=== PATIENT | male | born 1975 | race American Indian/Alaskan Native ===

== ENCOUNTER 2020-05-01 09:57 | Emergency (ER) | payer SELFPAY ==
[2020-05-01] MEDS: KETOROLAC 30 MG/1 ML INJ IV ONE ×2 (12:31→12:39)
--- NOTE | 2020-05-01 12:51 | Emergency Department Report ---
ED General Adult HPI - General Chief complaint: Dental/Oral Stated complaint: TOOTHACHE Time Seen by Provider: 05/01/20 11:16 Source: patient Mode of arrival: Ambulatory Limitations: No Limitations - History of Present Illness Initial comments: 44-year-old -Polish male patient presents with complaints of left upper and lower dental pain x3 days. He also reports facial swelling and difficulty opening his jaw. He denies any drooling, fever/chills/sweats, or difficulty swallowing. He reports that he has a fractured tooth for many years in the right upper tooth and was unable to get his tooth pulled many months ago due to loss of dental insurance. He rates his pain as a 8/10 in severity and describes it as throbbing. He denies any other past medical history Severity scale (0 -10): 8 - Related Data Previous Rx's Medication Instructions Recorded Last Taken Type Acetaminophen/Codeine [Tylenol 1 tab PO Q6H PRN #10 tab 05/01/20 Unknown Rx /Codeine # 3 tab] Clindamycin [Clindamycin CAP] 300 mg PO Q6H 10 Days #10 capsule 05/01/20 Unknown Rx Ibuprofen [Motrin 800 MG tab] 800 mg PO Q8HR PRN #21 tablet 05/01/20 Unknown Rx Allergies Allergy/AdvReac Type Severity Reaction Status Date / Time No Known Allergies Allergy Unverified 05/01/20 12:34 ED Review of Systems ROS: Stated complaint: TOOTHACHE Other details as noted in HPI Constitutional: denies: chills, diaphoresis, fever, malaise, weakness ENT: dental pain. denies: throat pain Respiratory: denies: cough, shortness of breath Cardiovascular: denies: chest pain Gastrointestinal: denies: nausea, vomiting Skin: denies: rash, lesions Neurological: denies: headache, numbness, paresthesias ED Past Medical Hx - Past Medical History Previous Medical History?: Yes - Surgical History Past Surgical History?: No - Medications Home Medications: Home Medications Medication Instructions Recorded Confirmed Last Taken Type Acetaminophen/Codeine [Tylenol 1 tab PO Q6H PRN #10 tab 05/01/20 Unknown Rx /Codeine # 3 tab] Clindamycin [Clindamycin CAP] 300 mg PO Q6H 10 Days #10 capsule 05/01/20 Unknown Rx Ibuprofen [Motrin 800 MG tab] 800 mg PO Q8HR PRN #21 tablet 05/01/20 Unknown Rx ED Physical Exam - General Limitations: No Limitations General appearance: alert, in no apparent distress, obese - Head Head exam: Present: atraumatic, normocephalic - Eye Eye exam: Present: normal appearance. Absent: scleral icterus - Expanded ENT Exam Expanded Mouth exam: Present: trismus, tongue normal. Absent: drooling, muffled voice Teeth exam: Present: dental caries, fractured tooth # (18), dental tenderness # (18), other (Mild swelling noted to the left cheek area overlying the upper molars without erythema; there is tenderness to palpation) Throat exam: Negative: tonsillar erythema, tonsillomegaly - Neck Neck exam: Present: full ROM, lymphadenopathy (Left anterior). Absent: tenderness - Respiratory Respiratory exam: Present: normal lung sounds bilaterally. Absent: respiratory distress - Cardiovascular Cardiovascular Exam: Present: regular rate, normal rhythm, normal heart sounds - Neurological Exam Neurological exam: Present: alert, oriented X3, normal gait - Psychiatric Psychiatric exam: Present: normal affect, normal mood - Skin Skin exam: Present: warm, dry, intact, normal color. Absent: rash ED Course Vital Signs 05/01/20 10:05 Temperature 98.8 F Pulse Rate 78 Respiratory 18 Rate Blood Pressure 136/86 [Right] O2 Sat by Pulse 100 Oximetry ED Medical Decision Making - Lab Data Result diagrams: 05/01/20 12:44 05/01/20 12:44 Lab Results 05/01/20 05/01/20 Range/Units 12:44 12:44 WBC 5.7 (4.5-11.0) K/mm3 RBC 4.87 (3.65-5.03) M/mm3 Hgb 14.6 (11.8-15.2) gm/dl Hct 42.7 (35.5-45.6) % MCV 88 (84-94) fl MCH 30 (28-32) pg MCHC 34 (32-34) % RDW 15.0 (13.2-15.2) % Plt Count 273 (140-440) K/mm3 Lymph % (Auto) 41.0 H (13.4-35.0) % [place] % (Auto) 8.7 H (0.0-7.3) % Eos % (Auto) 1.1 (0.0-4.3) % Baso % (Auto) 0.4 (0.0-1.8) % Lymph # (Auto) 2.3 (1.2-5.4) K/mm3 [place] # (Auto) 0.5 (0.0-0.8) K/mm3 Eos # (Auto) 0.1 (0.0-0.4) K/mm3 Baso # (Auto) 0.0 (0.0-0.1) K/mm3 Seg Neutrophils % 48.8 (40.0-70.0) % Seg Neutrophils # 2.8 (1.8-7.7) K/mm3 Sodium 137 (137-145) mmol/L Potassium 4.2 (3.6-5.0) mmol/L Chloride 99.6 (98-107) mmol/L Carbon Dioxide 22 (22-30) mmol/L Anion Gap 20 mmol/L BUN 10 (9-20) mg/dL Creatinine 0.9 (0.8-1.3) mg/dL Estimated GFR > 60 ml/min BUN/Creatinine Ratio 11 % Glucose 123 H (75-100) mg/dL Calcium 9.2 (8.4-10.2) mg/dL - Radiology Data Radiology results: report reviewed CT NECK WITH INTRAVENOUS CONTRAST AND MULTIPLANAR RECONSTRUCTION CLINICAL HISTORY: left tooth pain with trismus TECHNIQUE: 3.75 mm thick contiguous axial scans were obtained from the skull base down to the aortic arch during intravenous contrast administration. In addition to evaluation of axial source images sagittal and coronal multiplanar reconstructions were produced and reviewed for this report. All CT imaging studies performed at this facility utilize dose modulation, iterative reconstruction or weight based dosing, if appropriate, to obtain the lowest achievable radiation dose. FINDINGS: A large dental gael is seen with destruction of the crown of tooth #16 (upper left third molar). In addition there is periapical lucency which could represent a periodontal abscess. There is discontinuity of cortex of the lateral wall of the maxilla adjacent to tooth #16. There is increased soft tissue fullness in the adjacent soft tissues. No definite evidence of abscess is observed. Periapical lucency is observed at the root of tooth #7. This could represent a small periapical abscess or a radicular cyst. The teeth of the inferior alveolar ridge have an unremarkable appearance. No abnormalities are seen along the course of the airway. Nasopharynx, oropharynx, hypopharynx, larynx and visualized portions of the subglottic airway all have an unremarkable appearance. There is no indication of cervical lymphadenopathy. Several normal-sized lymph nodes are identified in level 1B and level 2 bilaterally. No abnormalities are seen in evaluation of the oral cavity and tongue. The floor the mouth has a normal appearance. The parotid and submandibular salivary glands have a normal appearance. Evaluation of the nasal cavity reveals no abnormality. Paranasal sinuses are remarkable for what appears to be a retention cyst or polyp filling most of the left maxillary sinus. Given the disease in the adjacent third molar the disease in the left maxillary sinus could also be odontogenic in origin. Paranasal sinuses are otherwise free from inflammatory mucosal disease. The orbits have an unremarkable appearance. The thyroid gland is normal in size and homogeneous in attenuation. No focal thyroid lesions are identified. Evaluation of the cervical spine reveals no significant abnormality. Normal alignment is maintained. No significant degenerative changes are identified. Evaluation of the lung apices reveals no abnormality. There is no indication of lung nodule or infiltrate. The visualized portions of the superior mediastinum have an unremarkable appearance. Enhancement of normal vascular structures is demonstrated. No areas of abnormal contrast enhancement are identified. IMPRESSION: 1. A prominent dental gael is present at the crown of tooth #16. In addition there is disruption of the lateral cortex of the adjacent maxilla. 2. Increased soft tissue fullness adjacent to the posterior left maxilla may represent an odontogenic phlegmon. I do not identify a definite abscess at this time. - Medical Decision Making 44-year-old -[place] male patient presents with complaints of left upper and lower dental pain x3 days. He also reports facial swelling and difficulty opening his jaw. He denies any drooling, fever/chills/sweats, or difficulty swallowing. He reports that he has a fractured tooth for many years in the right upper tooth and was unable to get his tooth pulled many months ago due to loss of dental insurance. He rates his pain as a 8/10 in severity and describes it as throbbing. On exam patient has mild trismus and tenderness to palpation of the 18th tooth along with mild swelling of the face. White count is normal on CBC. CT of the neck shows phlegmon and possible small periapical abscess without deep space in fection or impingement on the airway. Patient given IV Clinda. Prescription for clindamycin given for home. His vitals are normal, he is well-appearing, he is stable for discharge home. Patient provided with dental clinic list and informed to follow-up within 24 hours for further evaluation and treatment. Strict return precautions were discussed in detail with patient who verbalizes understanding Critical care attestation.: If time is entered above; I have spent that time in minutes in the direct care of this critically ill patient, excluding procedure time. ED Disposition Clinical Impression: Dental abscess, Dental infection Disposition: TO HOME OR SELFCARE Is pt being admited?: No Condition: Stable Instructions: Dental Abscess (ED) Additional Instructions: Please follow-up with 1 of the dental specialist from the list provided within 24 hours. Prescriptions: Clindamycin [Clindamycin CAP] 300 mg PO Q6H 10 Days #10 capsule Ibuprofen [Motrin 800 MG tab] 800 mg PO Q8HR PRN #21 tablet PRN Reason: Pain, Moderate (4-6) Acetaminophen/Codeine [Tylenol /Codeine # 3 tab] 1 tab PO Q6H PRN #10 tab PRN Reason: Pain , Severe (7-10) Referrals: PRIMARY CARE,MD [Primary Care Provider] - 3-5 Days Forms: Work/School Release Form(ED)
[2020-05-01 13:36] LABS: Basophils % (Auto) 0.4 % (0.0-1.8); Eosinophils # (Auto) 0.1 K/mm3 (0.0-0.4); Eosinophils % (Auto) 1.1 % (0.0-4.3); Hematocrit 42.7 % (35.5-45.6); Hemoglobin 14.6 gm/dl (11.8-15.2); Lymphocytes # (Auto) 2.3 K/mm3 (1.2-5.4); Mean Corpuscular HGB Conc 34 % (32-34); Mean Corpuscular Volume 88 fl (84-94); Monocytes # (Auto) 0.5 K/mm3 (0.0-0.8); Monocytes % (Auto) 8.7 % (0.0-7.3); Platelet Count 273 K/mm3 (140-440); Red Blood Count 4.87 M/mm3 (3.65-5.03)
[2020-05-01 14:10] LABS: BUN/Creatinine Ratio 11; Blood Urea Nitrogen 10 mg/dL (9-20); Calcium 9.2 mg/dL (8.4-10.2); Hemolysis Index 39
--- NOTE | 2020-05-01 16:14 | Cat Scan Report ---
CT NECK WITH INTRAVENOUS CONTRAST AND MULTIPLANAR RECONSTRUCTION CLINICAL HISTORY: left tooth pain with trismus TECHNIQUE: 3.75 mm thick contiguous axial scans were obtained from the skull base down to the aortic arch during intravenous contrast administration. In addition to evaluation of axial source images sagittal and c oronal multiplanar reconstructions were produced and reviewed for this report. All CT imaging studies performed at this facility utilize dose modulation, iterative reconstruction o r weight based dosing, if appropriate, to obtain the lowest achievable radiation dose. FINDINGS: A large dental gael is seen with destruction of the crown of tooth #16 (upper left third molar). In addition there is periapical lucency which could represent a periodontal abscess. There is discontinu ity of cortex of the lateral wall of the maxilla adjacent to tooth #16. There is increased soft tissu e fullness in the adjacent soft tissues. No definite evidence of abscess is observed. Periapical luce ncy is observed at the root of tooth #7. This could represent a small periapical abscess or a radicul ar cyst. The teeth of the inferior alveolar ridge have an unremarkable appearance. No abnormalities are seen along the course of the airway. Nasopharynx, oropharynx, hypopharynx, laryn x and visualized portions of the subglottic airway all have an unremarkable appearance. There is no indication of cervical lymphadenopathy. Several normal-sized lymph nodes are identified i n level 1B and level 2 bilaterally. No abnormalities are seen in evaluation of the oral cavity and tongue. The floor the mouth has a norm al appearance. The parotid and submandibular salivary glands have a normal appearance. Evaluation of the nasal cavity reveals no abnormality. Paranasal sinuses are remarkable for what appe ars to be a retention cyst or polyp filling most of the left maxillary sinus. Given the disease in th e adjacent third molar the disease in the left maxillary sinus could also be odontogenic in origin. P aranasal sinuses are otherwise free from inflammatory mucosal disease. The orbits have an unremarkable appearance. The thyroid gland is normal in size and homogeneous in attenuation. No focal thyroid lesions are iden tified. Evaluation of the cervical spine reveals no significant abnormality. Normal alignment is maintained. No significant degenerative changes are identified. Evaluation of the lung apices reveals no abnormality. There is no indication of lung nodule or infilt rate. The visualized portions of the superior mediastinum have an unremarkable appearance. Enhancement of normal vascular structures is demonstrated. No areas of abnormal contrast enhancement are identified. IMPRESSION: 1. A prominent dental gale is present at the crown of tooth #16. In addition there is disruption of the lateral cortex of the adjacent maxilla. 2. Increased soft tissue fullness adjacent to the posterior left maxilla may represent an odontogenic phlegmon. I do not identify a definite abscess at this time. Signer Name: Guero Barajas MD Signed: 05/01/2020 4:09 PM Workstation Name: [id number]
[2020-05-01 16:27] VITALS: BP 130/82
== END 2020-05-01 16:27 | disposition home or self-care (01) ==
LOC: ED 09:57
DX: K04.7 Periapical abscess without sinus (principal); K02.9 Dental caries, unspecified
CPT/HCPCS: 36415; 70491; 80048; 85025; 96365; 96375; 99284; J1885; Q9967